=== PATIENT | male | born 1990 | race Caucasian/White ===

== ENCOUNTER → 2023-11-20 12:24 | Outpatient (REF) | payer BC, SELFPAY ==
[2023-11-20 12:46] VITALS: BP 140/80; BP_SYST 72
== END ==
LOC: RADI 12:24
PROVIDERS: ATTENDING PHYSICIAN Physical Medicine & Rehabilitation; FAMILY PHYSICIAN Family Medicine
DX: M67.462 Ganglion, left knee (principal); M25.562 Pain in left knee
CPT/HCPCS: 20610; 77012